=== PATIENT | male | born 1990 | race African-American/Black ===

== ENCOUNTER 2025-03-23 13:50 | Emergency (ER) | payer SELFPAY ==
[2025-03-23 14:01] VITALS: BP 152/98
--- NOTE | 2025-03-23 15:04 | ED.GENMED ---
History of Present Illness
General
Chief Complaint: Male Genito-Urinary Symptoms
Source: patient
Exam Limitations: none
Time Seen by Provider: 03/23/25 14:33
Nursing documentation reviewed up to this point in time: agreed with
History of Present Illness
History of Present Illness:
34-year-old male states he got a phone call from a former girl acquaintance telling him she tested positive for chlamydia 3 weeks ago. Patient denies any symptoms such as burning, itching, rash, drainage. Requesting to be treated for STI
Past History
Past History
ED Past Medical History: None
ED Past Surgical History: None
Social History
Tobacco: Non-smoker
Alcohol: Occasional
Personal: Single
Living: with family
Employment: Employed
Review of Systems
Review of Systems
Allergies reviewed?: Yes
All Other Systems: ROS reviewed and negative except as documented in HPI and ROS
: Denies dysuria or discharge
Phy Exam
Physical Exam
Physical Exam:
PHYSICAL EXAMINATION:
General: no apparent distress, not acutely ill
Neuro: alert and oriented.
Psychiatric: well kept. interactive and cooperative
Musculoskeletal: Moves with ease
: Deferred, patient has no symptoms
Skin: Warm, pink.
Course
Orders/Labs/Results
Orders:
Orders
03/23/25 14:56
Ceftriaxone Sodium [Rocephin] 500 mg IM NOW STA
03/23/25 14:57
Azithromycin [Zithromax] 1,000 mg PO NOW STA
03/23/25 14:59
Chlamydia/GC by PCR Urgent
OLAYINKA Source: Urine
Specimen Description:
Source:: URINE
Date Specimen was Collected: 03/23/25
Time Specimen was Collected: 14:58
Vital Signs
Initial and Last Documented VS:
Initial Vital Signs
Temp Pulse Resp BP Pulse Ox
98.1 F 99 17 152/98 97
03/23/25 14:01 03/23/25 14:01 03/23/25 14:01 03/23/25 14:01 03/23/25 14:01
Last Documented Vital Signs
Temp Pulse Resp BP Pulse Ox
98.1 F 99 17 142/88 97
03/23/25 14:01 03/23/25 14:01 03/23/25 14:01 03/23/25 15:36 03/23/25 14:01
MDM/Problems Addressed
MDM/Problems Addressed:
34-year-old male states he got a phone call from a former girl acquaintance telling him she tested positive for chlamydia 3 weeks ago. Patient denies any symptoms such as burning, itching, rash, drainage. Requesting to be treated for STI
Urine positive for chlamydia
*Critical Care Note
Total Time (30-74mins, 75-104mins- exclusive of procedures): Not Applicable
ED Attending Note
-
Portions of this chart may have been created with voice recognition software.� Occasional wrong word or��sound alike� substitutions may have occurred due to the inherent limitations of voice recognition software.
Discharge Plan
Departure
Patient Disposition: Home (Routine Discharge)
Date of Disposition: 03/23/25
Time of Disposition: 15:05
Patient with high blood pressure during this ER visit?: No
Condition: Good
Discharge Problem:
Possible exposure to STI
Instructions: Sexually transmitted infections
Interventions
Interventions:
*Risk Screen - Suicide Last Done: 03/23/25 14:03
*General Assessment Last Done: 03/23/25 14:03
*Neglect/Abuse Screening Last Done: 03/23/25 14:03
*ED COVID-19 Vaccine History Last Done: 03/23/25 14:03
*Nursing Disposition Last Done: 03/23/25 15:38
ED-Male Genitourinary Assessment Last Done: 03/23/25 14:12
Discharge Date and Time
Discharge Date/Time: 03/23/25 16:18
Print Language: PERUVIAN
[2025-03-23] MEDS: ROCEPHIN 500 MG IM (15:35)
[2025-03-23] MEDS: ZITHROMAX 1000 MG PO (15:35)
[2025-03-23 15:36] VITALS: BP 142/88
== END 2025-03-23 16:18 | disposition home or self-care (01) ==
LOC: EMR 13:50
PROVIDERS: EMERGENCY PHYSICIAN Emergency Medicine
DX: Z20.2 Contact with and (suspected) exposure to infections with a predominantly sexual mode of transmission (principal)
CPT/HCPCS: 99282; 96372; 87491; 87591

== ENCOUNTER 2025-06-22 20:22 | Emergency (ER) | payer SELFPAY ==
[2025-06-22 20:27] VITALS: BP 174/110
[2025-06-22 20:53] LABS: Hematocrit 44.1 % (39.0-52.0); Hemoglobin 14.3 g/dL (13.0-18.0); Mean Corp Hgb Conc. 32.4 g/dL (33.0-37.0); Mean Corpuscular Volume 90.2 fL (80.0-94.0); Nucleated Red Blood Cells % 0 % (-); Platelet Count 310 10^3/uL (130-400); Red Cell Dist. Width 11.8 % (11.5-14.5)
[2025-06-22 21:16] LABS: ALT (SGPT) 35 U/L (0-50); AST (SGOT) 33 U/L (17-59); Albumin 4.9 g/dl (3.5-5.0); Alkaline Phosphatase 46 U/L (38-126); Blood Urea Nitrogen 19 mg/dl (9-20); Calcium 9.8 mg/dl (8.4-10.2); Carbon Dioxide 28 mmol/L (22-30); Chloride 104 mmol/L (98-107); Glucose 87 mg/dl (70-99); Potassium 4.3 mmol/L (3.5-5.1); Sodium 139 mmol/L (135-145); Total Protein 7.7 g/dl (6.3-8.2); eGFR > 60.00
[2025-06-22 21:49] VITALS: BMI 45.3
--- NOTE | 2025-06-22 23:05 | ED.GENMED ---
History of Present Illness
General
Chief Complaint: Abdominal Symptoms
Source: patient
Exam Limitations: none
Time Seen by Provider: 06/22/25 23:01
Nursing documentation reviewed up to this point in time: agreed with
History of Present Illness
History of Present Illness:
35-year-old male presents with complaints of recurrent vomiting. Patient reports that this has been going on for the past 2 months but has been worsening over the past week to the point where patient vomits after every meal. Prior to this, he
reports vomiting occurred every other meal. Patient states that he is able to swallow the food and denies any dysphagia or throat pain but then once he gets it down, 'it just comes up later'. He has no abdominal pain associated with this. No
diarrhea or constipation. Patient reports that he has always had a weak stomach since childhood however its never been this bad. Patient feels like the symptoms got worse when he switched from smoking cigarettes to vaping. He denies any dark
tarry stools. Patient also is concerned about ear pain he has been having intermittently over the last 2 months. He denies discharge from ear. Patient reports that it is in the right ear. He is concerned he has a ear infection. He denies
drainage from the ear. He denies fevers or chills. He denies any cough or upper respiratory symptoms. He notes that with this ear pain, the jaw will occasionally lock up and cause persistent pain on his right jaw. Denies any sore throat. He
denies any headache.
Past History
Past History
ED Past Medical History: None
ED Past Surgical History: None
Social History
Tobacco: Non-smoker
Alcohol: Occasional
Personal: Single
Living: with family
Employment: Employed
Review of Systems
Review of Systems
All Other Systems: ROS reviewed and negative except as documented in HPI and ROS
Phy Exam
Physical Exam
Physical Exam:
General: Patient is well appearing and in no acute distress; non-toxic
Skin: Warm and dry, no rashes or lesions
Head: Normocephalic, atraumatic. TMJ joints intact bilaterally.
Eyes: Sclera non-icteric. EOMs intact.
Ears: External ear canals clear bilaterally, no erythema, no debris. TMs clear bilaterally no erythema no bulging, no fluid.
Cardiac: Regular rate and rhythm, no murmurs
Pulm: Normal respiratory effort, no wheezes, rales, rhonchi
Abdomen: No abdominal tenderness to palpation
Neuro: CN II-XII intact, no focal neurologic deficits.
Psychiatric: Appropriate mood and affec
Course
Orders/Labs/Results
Orders:
Orders
06/22/25 20:42
Complete Blood Count/With Diff Urgent
Comprehensive Metabolic Panel Urgent
06/22/25 23:19
Ibuprofen [Motrin] 600 mg PO NOW STA
Ondansetron HCl [Zofran] 4 mg PO NOW STA
06/23/25 00:04
CT Abd/pelvis W Iv Cont Urgent
Reason For Exam: inability to tolerate oral intake, intractable vom
Abnormal Lab Results
06/22/25
20:42
MCHC 32.4 L g/dL
(33.0-37.0)
MPV 10.7 H fL
(7.4-10.4)
06/22/25 20:42
06/22/25 20:42
Vital Signs
Initial and Last Documented VS:
Initial Vital Signs
Temp Pulse Resp BP Pulse Ox
98.2 F 85 16 174/110 97
06/22/25 20:27 06/22/25 20:27 06/22/25 20:27 06/22/25 20:27 06/22/25 20:27
Last Documented Vital Signs
Temp Pulse Resp BP Pulse Ox
98.2 F 85 16 174/110 97
06/22/25 20:27 06/22/25 20:27 06/22/25 20:27 06/22/25 20:27 06/22/25 23:06
MDM/Problems Addressed
Differential Diagnosis Includes:
Differentials include bowel obstruction, GERD, gastroparesis, cyclic vomiting syndrome, hiatal hernia, TMJ disorder, esophageal web, etc.
MDM/Problems Addressed:
35-year-old male presents with complaints of recurrent vomiting. Patient reports that this has been going on for the past 2 months but has been worsening over the past week to the point where patient vomits after every meal. Prior to this, he
reports vomiting occurred every other meal. Patient states that he is able to swallow the food and denies any dysphagia or throat pain but then once he gets it down, 'it just comes up later'.
On my physical exam, he is well-appearing, no acute distress, his abdomen is soft and nontender to palpation, nondistended. Labs reviewed, CBC and CMP unremarkable. Patient went for CAT scan which showed no structural abnormality to explain his
symptoms showed possible gastritis. GERD/gastritis could explain his nausea and reflux of food. Suggested PPI trial, prescription for Zofran also given. Patient will follow-up with GI as an outpatient. Patient stable for discharge. Discussed
tricked return precautions.
*Pulse Oximetry
SaO2: 97
Oxygen Mode of Delivery: Room air
Patient hypoxic: no
*Critical Care Note
Total Time (30-74mins, 75-104mins- exclusive of procedures): Not Applicable
ED Attending Note
-
Portions of this chart may have been created with voice recognition software.� Occasional wrong word or��sound alike� substitutions may have occurred due to the inherent limitations of voice recognition software.
Discharge Plan
Departure
Patient Disposition: Home (Routine Discharge)
Date of Disposition: 06/23/25
Time of Disposition: 01:07
Patient with high blood pressure during this ER visit?: Yes
Condition: Good
Discharge Problem:
Nausea & vomiting, Gastritis, TMJ (sprain of temporomandibular joint)
Instructions: Nausea and Vomiting, Adult (DC), Acid reflux and GERD in adults, BLOOD PRESSURE
Prescriptions:
New
pantoprazole 20 mg tablet,delayed release (DR/EC)
20 mg PO DAILY 14 Days Qty: 14 0RF
ondansetron HCl 4 mg tablet
4 mg PO Q4H PRN (Reason: nausea and vomiting) Qty: 10 0RF
Referrals:
Karin Wells MD [Active, Gastroenterology] - Call in 1-3 days for appt
NONE,* [Family Provider, Internal Medicine]
Activity Restrictions/Additional Instructions:
Zofran has been sent to pharmacy. Please take 1 tablet every 4 hours as needed for nausea and vomiting. Pantoprazole is also been sent to your pharmacy. Please take 1 tablet once daily for 2-week trial. Please follow-up with your primary care
provider.
Please call attached number to schedule an appointment with gastroenterology.
PLEASE RETURN TO ER SHOULD YOU DEVELOP ABDOMINAL PAIN, FEVERS OR CHILLS, INTRACTABLE NAUSEA OR VOMITING, ACUTE WORSENING OF YOURSYMPTOMS, CHEST PAIN, SHORTNESS OF BREATH, OR ANY OTHER SIGNS OR SYMPTOMS WORRISOME TO YOU.
Interventions
Interventions:
*Risk Screen - Suicide Last Done: 06/22/25 20:31
*General Assessment Last Done: 06/22/25 21:50
*Neglect/Abuse Screening Last Done: 06/22/25 20:31
*ED- Fall Risk Assessment Last Done: 06/22/25 21:50
*ED COVID-19 Vaccine History Last Done: 06/22/25 21:50
*Nursing Disposition Last Done: 06/23/25 01:21
JC-[id number] Assessment Last Done: 06/22/25 21:52
Discharge Date and Time
Discharge Date/Time: 06/23/25 01:24
Print Language: GREEK
[2025-06-22] MEDS: MOTRIN 600 MG PO (23:28)
[2025-06-22] MEDS: ZOFRAN 4 MG PO (23:28)
== END 2025-06-23 01:24 | disposition home or self-care (01) ==
LOC: EMR 20:22
PROVIDERS: Emergency Medicine; EMERGENCY PHYSICIAN Student in an Organized Health Care Education/Training Program
DX: K29.70 Gastritis, unspecified, without bleeding (principal); R11.2 Nausea with vomiting, unspecified; S03.41XA Sprain of jaw, right side, initial encounter; X58.XXXA Exposure to other specified factors, initial encounter; F17.290 Nicotine dependence, other tobacco product, uncomplicated; K21.9 Gastro-esophageal reflux disease without esophagitis
CPT/HCPCS: 99284; 74177; 80053; 85025; Q9967